=== PATIENT | female | born 1970 | race American Indian/Alaskan Native ===

== ENCOUNTER 2016-08-17 11:17 | Emergency (ER) | payer OTHER ==
--- NOTE | 2016-08-17 11:30 | Emergency Department Report ---
Chief Complaint: Vaginal Bleeding Stated Complaint: HEAVY MENSTRUAL/ WEAK/FATIGUE - HPI History of Present Illness: 45-year-old female past medical history none presents with complaint of heavy vaginal bleeding 2-3 days. Patient states that she is going through multiple heavy-duty pads per day and she feels generally weak denies any chest pain shortness of breath or palpitations no nausea vomiting denies any dysuria fever or chills - ROS Review of Systems: Heavy vaginal bleeding - Exam Vital Signs: Vital Signs 08/17/16 11:19 Temperature 98.8 F Pulse Rate 111 H Blood Pressure 144/97 O2 Sat by Pulse 100 Oximetry Physical Exam: Heart S1-S2 tachycardic MSE screening note: Focused history and physical exam performed. Due to findings the following was ordered: Screening Assessment/Plan/Differential Dx: Menorrhagia 1- This initial assessment/diagnostic orders/clinical plan/ treatment(s) is/are subject to change based on pt's health status, clinical progression and re- assessment by fellow clinical providers in the ED. Further treatment and workup at subsequent clinical provers discretion. Patient/guardians urged not to elope from ED as their condition may be serious if not clinically assessed and managed. 2-CBC, type and screen, basic labs, as patient is tachycardic we'll obtain EKG to assess heart 3-UA, urinalysis, urine , ultrasound pelvic 4-patient states that her blood type is O+ ED Disposition for MSE Condition: Stable
[2016-08-17 12:18] LABS: INR 1.02 (0.87-1.13)
[2016-08-17 12:19] LABS: Anion Gap 17 mmol/L; BUN/Creatinine Ratio 11.42; Blood Urea Nitrogen 8 mg/dL (7-17); Calcium 8.5 mg/dL (8.4-10.2); Carbon Dioxide 22 mmol/L (22-30); Chloride 104.4 mmol/L (98-107); Glucose 112 mg/dL (65-100); Partial Thromboplastin Time 29.4 Sec. (24.2-36.6); Potassium 3.9 mmol/L (3.6-5.0); Sodium 139 mmol/L (137-145)
[2016-08-17 12:23] LABS: Basophils % (Auto) 0.4 % (0.0-1.8); Creatine Kinase 63 units/L (30-135); Creatine Kinase MB < 1.0 ng/mL (0.0-4.0); Hematocrit 33.6 % (30.3-42.9); Hemoglobin 10.6 gm/dl (10.1-14.3); Mean Corpuscular HGB Conc 31 % (30-34); Mean Corpuscular Volume 77 fl (79-97); Platelet Count 504 K/mm3 (140-440); Red Blood Count 4.35 M/mm3 (3.65-5.03); Red Cell Distribution Width 15.8 % (13.2-15.2); White Blood Count 8.6 K/mm3 (4.5-11.0)
[2016-08-17 12:24] LABS: Mean Corpuscular Hemoglobin 24 pg (28-32)
[2016-08-17 17:54] LABS: Bilirubin,Urine NEG (Negative); Blood,Urine LG (Negative); Ketones,Urine NEG (Negative); Leukocyte Esterase,Urine TR (Negative); Mucus,Urine 1+ /HPF; Nitrite,Urine NEG (Negative); RBC,Urine > 182.0 /HPF (0.0-6.0); Urobilinogen,Urine < 2.0 mg/dL (<2.0)
--- NOTE | 2016-08-17 18:46 | Ultrasound Report ---
FINAL REPORT EXAM: US TRANSVAGINAL HISTORY: heavy bleeding and pain TECHNIQUE: Ultrasound transvaginal pelvis PRIORS: None. FINDINGS: The uterus measures 8.5 x 5.1 x 5.9 centimeters. Endometrial stripe is 1.46 centimeters At the fundus of the uterus there is a subserosal fibroid measuring 1.9 x 1.3 x 1.7 centimeters. Within the mid to lower uterus there is a 2.1 x 1.4 x 2.2 centimeter hypoechoic focus which may reflect submucosal fibroid versus polyp. No free fluid identified in the cul-de-sac Right ovary is 2.6 x 1.9 x 2.7 centimeters Left ovary is 2.5 x 1.3 x 1.7 centimeters No abnormal cyst or mass identified. IMPRESSION: Hypoechoic focus within the mid to lower uterus which may reflect submucosal fibroid versus polyp Sub serosal fibroid at the fundus noted
--- NOTE | 2016-08-17 18:50 | Ultrasound Report ---
FINAL REPORT EXAM: US PELVIC COMPLETE HISTORY: heavy bleeding and pain TECHNIQUE: Ultrasound pelvis transabdominal PRIORS: None. FINDINGS: Uterus is 8.5 x 5.1 x 5.9 centimeters. There is a sub serosal uterine fibroid at the fundus 1.9 centimeters. Mixed echogenicity focus within the mid to lower uterine segment may reflect submucosal fibroid versus Endometrial thickness is 1.4 centimeters Ovaries demonstrate normal size and echogenicity IMPRESSION: Submucosal uterine fibroid versus polyp Sub serosal uterine fibroid noted
--- NOTE | 2016-08-17 21:07 | Emergency Department Report ---
ED Female HPI - General Chief complaint: Vaginal Bleeding Stated complaint: HEAVY MENSTRUAL/ WEAK/FATIGUE Time Seen by Provider: 08/17/16 21:03 Source: patient Mode of arrival: Ambulatory Limitations: No Limitations - History of Present Illness Initial comments: 45-year-old female presents with complaint of 2-3 days of heavy vaginal bleeding bleeding through several extra-large pads per day. Patient denies any headache chest pain nausea vomiting fever or chills no palpitations no shortness of breath. States that her primary concern is of heavy bleeding. States that her blood type was O+. States that she has some clots as well. Complaint: vaginal bleeding Onset/Timin -: days(s) Improves with: none Worsens with: none Are you Now?: No Last Menstrual Period: 08/20/15 EDC: 05/26/16 Associated Symptoms: vaginal bleeding - Related Data Sexually active: Yes : 7 Para: 7 Previous Rx's Medication Instructions Recorded Last Taken Type Ciprofloxacin [Ciprofloxacin ORAL 500 mg PO Q12H #14 ml 09/14/15 Unknown Rx LIQ] Promethazine [Phenergan TAB] 25 mg PO Q6HR PRN #7 tab 09/14/15 Unknown Rx Docusate Sodium [Colace CAP] 100 mg PO BID PRN #60 capsule 08/17/16 Unknown Rx Ferrous Sulfate [Feosol 325 MG tab] 325 mg PO QDAY #30 tablet 08/17/16 Unknown Rx Ibuprofen [Motrin] 400 mg PO Q8H PRN #30 tablet 08/17/16 Unknown Rx Nitrofurantoin [place]/M-Cryst 100 mg PO Q12HR #14 capsule 08/17/16 Unknown Rx [Macrobid CAP] Allergies Allergy/AdvReac Type Severity Reaction Status Date / Time No Known Allergies Allergy Unverified 11/08/13 12:15 ED Review of Systems ROS: Stated complaint: HEAVY MENSTRUAL/ WEAK/FATIGUE Other details as noted in HPI Constitutional: denies: chills, fever Eyes: denies: eye pain, eye discharge, vision change ENT: denies: ear pain, throat pain Respiratory: denies: cough, shortness of breath, wheezing Cardiovascular: denies: chest pain, palpitations Endocrine: no symptoms reported Gastrointestinal: denies: abdominal pain, nausea, diarrhea Genitourinary: denies: urgency, dysuria, discharge Musculoskeletal: denies: back pain, joint swelling, arthralgia Skin: denies: rash, lesions Neurological: denies: headache, weakness, paresthesias Psychiatric: denies: anxiety, depression Hematological/Lymphatic: denies: easy bleeding, easy bruising ED Past Medical Hx - Surgical History Hx Cholecystectomy: Yes Additional Surgical History: TUBLIGATION 1999 - Social History Smoking Status: Never Smoker Substance Use Type: None - Medications Home Medications: Home Medications Medication Instructions Recorded Confirmed Last Taken Type Ciprofloxacin [Ciprofloxacin ORAL 500 mg PO Q12H #14 ml 09/14/15 Unknown Rx LIQ] Promethazine [Phenergan TAB] 25 mg PO Q6HR PRN #7 tab 09/14/15 Unknown Rx Docusate Sodium [Colace CAP] 100 mg PO BID PRN #60 capsule 08/17/16 Unknown Rx Ferrous Sulfate [Feosol 325 MG tab] 325 mg PO QDAY #30 tablet 08/17/16 Unknown Rx Ibuprofen [Motrin] 400 mg PO Q8H PRN #30 tablet 08/17/16 Unknown Rx Nitrofurantoin [place]/M-Cryst 100 mg PO Q12HR #14 capsule 08/17/16 Unknown Rx [Macrobid CAP] ED Physical Exam - General Limitations: No Limitations General appearance: alert, in no apparent distress - Head Head exam: Present: atraumatic, normocephalic - Eye Eye exam: Present: normal appearance, PERRL, EOMI - ENT ENT exam: Present: mucous membranes moist - Neck Neck exam: Present: normal inspection - Respiratory Respiratory exam: Present: normal lung sounds bilaterally. Absent: respiratory distress - Cardiovascular Cardiovascular Exam: Present: regular rate, normal rhythm. Absent: systolic murmur, diastolic murmur, rubs, gallop - GI/Abdominal GI/Abdominal exam: Present: soft, normal bowel sounds - Rectal Rectal exam: Present: deferred - External exam: Present: bleeding Speculum exam: Present: vaginal bleeding Bi-manual exam: Present: normal bi-manual exam - Extremities Exam Extremities exam: Present: normal inspection - Back Exam Back exam: Present: normal inspection - Neurological Exam Neurological exam: Present: alert, oriented X3, CN II-XII intact, normal gait - Psychiatric Psychiatric exam: Present: normal affect, normal mood - Skin Skin exam: Present: warm, dry, intact, normal color. Absent: rash ED Course Vital Signs 08/17/16 11:19 Temperature 98.8 F Pulse Rate 111 H Blood Pressure 144/97 O2 Sat by Pulse 100 Oximetry ED Medical Decision Making - Lab Data Result diagrams: 08/17/16 11:43 08/17/16 11:43 - Medical Decision Making A/P: Heavy vaginal bleeding, menorrhagia 1-CBC H&H 2-ultrasound shows uterine fibroids 3-I discussed case with Dr. Mcelroy. pt HR now 79, o2 sat 100%, RR 18. 4-I will refer patient to [facility], I emphasized to patient the importance of follow-up she may require some form of oral contraceptive medicine or hormonal management for menorrhagia. I advised patient that if she develops severe chest pain shortness of breath nausea vomiting if she has bright red blood from vagina the discussion feels exceedingly weak to return to the emergency room as soon as possible. 5-urine reveals leukocytes, will treat empirically with Macrobid. Motrin for discomfort. Critical care attestation.: If time is entered above; I have spent that time in minutes in the direct care of this critically ill patient, excluding procedure time. ED Disposition Clinical Impression: Menorrhagia Qualifiers: Menorrahagia type: with regular cycle Qualified Code(s): N92.0 - Excessive and frequent menstruation with regular cycle Disposition: DISCHARGED TO HOME OR SELFCARE Is pt being admited?: No Does the pt Need Aspirin: No Condition: Stable Instructions: Menorrhagia (ED), Iron Deficiency Anemia (ED), Iron Supplements ( By mouth) Prescriptions: Docusate Sodium [Colace CAP] 100 mg PO BID PRN #60 capsule PRN Reason: Constipation Ferrous Sulfate [Feosol 325 MG tab] 325 mg PO QDAY #30 tablet Nitrofurantoin [place]/M-Cryst [Macrobid CAP] 100 mg PO Q12HR #14 capsule Ibuprofen [Motrin] 400 mg PO Q8H PRN #30 tablet PRN Reason: Pain Referrals: [facility] [Primary Care Provider] - 3-5 Days [facility] [[facility] - 3-5 Days [facility] [Outside] - 3-5 Days JOI SHIN MD [Staff Physician] - 3-5 Days Forms: Work/School Release Form(ED) Time of Disposition: 21:11
[2016-08-17 21:21] VITALS: BP 139/79
== END 2016-08-17 21:30 | disposition home or self-care (01) ==
LOC: ED 11:17
DX: N92.0 Excessive and frequent menstruation with regular cycle (principal); Z90.49 Acquired absence of other specified parts of digestive tract; Z98.51 Tubal ligation status
CPT/HCPCS: 36415; 76830; 76856; 80048; 81001; 81025; 82550; 82553; 84484; 85025; 85610; 85730; 86850; 86870; 86900; 86901; 87086; 93005; 93010